=== PATIENT | male | born 1995 ===

== ENCOUNTER 2023-05-21 14:15 | Outpatient (REF) | payer OTHER, SELFPAY ==
--- NOTE | ~2023-05-21 | US_ITS ---
EXAMINATION: US RENAL ARTERY DOPPLER CLINICAL INFORMATION: HYPERTENSIVE CRISIS COMPARISON: None TECHNIQUE: Renal ultrasound. Doppler ultrasound (spectral analysis and color Doppler) of the renal arteries and aorta were performed. FINDINGS: The right kidney measures 13 x 6.7 x 7.9 cm in sagittal, AP and transverse dimensions. The left kidney measures 13 x 6.2 x 6.1 cm in sagittal, AP and transverse dimensions. The kidneys show no masses, calculi or hydronephrosis. The corticomedullary differentiation is normal. RENAL ARTERY VELOCITIES: Right: Proximal: 87 cm/s. Mid: 119 cm/s. Distal: 50 cm/s. Left: Proximal: 145 cm/s. Mid: 81 cm/s. Distal: 60 cm/s. SEGMENTAL RESISTIVE INDICES: Right: Upper: 0.52 Mid: 0.4 Lower: 0.33 Left: Upper: 0.52 Mid: 0.52 Lower: 0.49 Mid aortic velocity: 83 cm/s. Renal Aortic Ratio: Right: 1.05 Left: 1.75 US/US renal doppler IMPRESSION: 1. The kidneys are normal in appearance. 2. There is no evidence of renal artery stenosis.
== END 2023-05-21 14:16 | disposition home or self-care (01) ==
LOC: HO.UMASIMG 14:15
PROVIDERS: Visit Provider Nurse Practitioner
DX: I10 Essential (primary) hypertension (principal)
CPT/HCPCS: 93975